=== PATIENT | female | born 1955 | race American Indian/Alaskan Native ===

== ENCOUNTER 2016-11-21 11:33 | Emergency (ER) | payer MEDICAID, OTHER ==
[~2016-11-21] VITALS: Ht 157.5 cm; Wt 94.0 kg
[~2016-11-21 11:33] MED LIST: AMLO10 PO; AUGM500T7 PO; GLUCOMTESTSTRIPS XX; GLUCTAB PO; IBUP600T26 PO; LEVEMIR SQ; LISI10 PO; LORTA5 PO; NOVOLOGP2 SQ; NYSTT TOPICAL; OXYC1SOL5 PO; RIVA15 PO; Z.0.INSULINSYR XX; Z.0.LANCETS XX
[2016-11-21 11:37] VITALS: BP 165/73; PULSE 73; RESP 24; TEMP 97.8; O2SAT 97
--- NOTE | 2016-11-21 12:01 | PD ---
HPI Chief Complaint: Abdominal Pain Time Seen by Provider: 12:01 Travel History International Travel<30 days: No Contact w/Intl Traveler<30days: No Traveled to known affect area: No History of Present Illness HPI 61-year-old female presents to emergency Department with sudden onset nausea, vomiting 1, and chills this morning. Patient has a significant history of uterine cancer followed by Dr. Colon. Patient last PET scan was in January 2016. Patient is currently off all chemotherapy and recently stopped her alto for previous DVT. Patient has a history of type 2 diabetes which is currently diet controlled after losing weight with her cancer treatment. Patient states she was feeling fine when she woke up this morning but then went for a walk but upon arriving back at her home she had sudden onset nausea, acute vomiting 1, and chills and diaphoresis. Patient states currently she has no pain and feels better. She has no diarrhea. She has no headache, fever , cough, shortness of breath, or flank pain. Patient does state she has not been drinking enough water and last week, and is worried about possible UTI. She has no known drug allergies. PFSH Past Medical History Heart Rhythm Problems: No Cancer: Yes (ENDOMETRIAL CANCER / MALIGNANT NEOPLASM OF UTERUS) Cardiovascular Problems: No High Cholesterol: No Chemotherapy: Yes (hx of uterine ca) Chest Pain: No Congestive Heart Failure: No Diabetes: Yes (borderline) Endocrine: No Genitourinary: Yes (DYSMENORRHEA, PELVIC AND PERINEAL PAIN) Hepatitis: No Hiatal Hernia: No Immune Disorder: No Implanted Vascular Access Dvce: Yes (PORT RIGHT CHEST) Musculoskeletal: Yes (ARTHRITIS) Neurologic: Yes (SUSPECTED STROKE) Psychiatric: Yes (ANXIETY) Reproductive: No Respiratory: No Immunizations Current: Yes Thyroid Disease: No ?: Not Tubal Ligation: Yes (1983) Past Surgical History Abdominal Surgery: No AICD: No Body Medical Devices: PORT RIGHT CHEST Cardiac Surgery: No Ear Surgery: No Endocrine Surgery: No Eye Surgery: No Genitourinary Surgery: No Gynecologic Surgery: Yes (D&c, HYSTEROSCOPY, ABLATIOIN IN 2014, TUBAL LIGATION IN 1983) Hysterectomy: Yes Joint Replacement: No Oral Surgery: No Pacemaker: No Thoracic Surgery: No Other Surgery: Yes Social History Alcohol Use: No Tobacco Use: No Substance Use: No Allergies-Medications (Allergen,Severity, Reaction): Coded Allergies: No Known Allergies (Verified , 11/21/16) Reported Meds & Prescriptions Reported Meds & Active Scripts Active [place] 5-325 mg (Hydrocodone-Acetaminophen 5-325 mg) 5 mg/325 mg Tab 1 Tab PO Q4H PRN Nystop (Nystatin) 15 Applic/15 Gm Powd 1 Applic TOPICAL Q12HR 5 Days Prinivil 10 mg (Lisinopril) 10 Mg Tab 10 Mg PO DAILY 30 Days Novolog (Insulin Aspart) 100 Units/ML Inj 4 Units SQ TIDPC 30 Days Levemir (Insulin Detemir) Inj 15 Units SQ BID 30 Days Norvasc (Amlodipine Besylate) 10 Mg Tab 10 Mg PO DAILY 30 Days Xarelto 15 Mg T15 Mg 15 Mg Tab 15 Mg PO BID 21 Days Oxycodone/Acetaminophen 5-325 mg/5Ml (Oxycodone W/ Acetaminophen) 5 mg/325 mg Tab 1 Tab PO Q4H PRN Reported Ibuprofen 600 Mg Tab 600 Mg PO Q8H PRN Glucophage XR 24 HR (Metformin HCl) 500 Mg Tab 500 Mg PO DAILY Review of Systems Except as stated in HPI: all other systems reviewed are Neg General / Constitutional: Positive: Chills, No: Fever Eyes: No: Visual changes HENT: No: Headaches Cardiovascular: No: Chest Pain or Discomfort Respiratory: No: Shortness of Breath Gastrointestinal: Positive: Nausea, Vomiting (see history of present illness.) , Abdominal Pain (see history present illness.) Genitourinary: No: Dysuria Musculoskeletal: No: Pain Skin: No Rash Neurologic: No: Weakness Psychiatric: No: Depression Endocrine: No: Polydipsia Hematologic/Lymphatic: No: Easy Bruising Physical Exam Narrative GENERAL: Patient appears in no acute distress. SKIN: Warm and dry. Mild pallor. No diaphoresis. HEAD: Atraumatic. Normocephalic. EYES: Pupils equal and round. No scleral icterus. No injection or drainage. ENT: No nasal bleeding or discharge. Mucous membranes pink and moist. Pharynx is clear. Airway is patent. NECK: Trachea midline. No JVD. Neck is supple and nontender. CARDIOVASCULAR: Regular rate and rhythm. No murmurs gallops or rubs. RESPIRATORY: No accessory muscle use. Clear to auscultation. Breath sounds equal bilaterally. GASTROINTESTINAL: Abdomen soft, non-tender, nondistended. Normal bowel sounds in all quadrants. No CVA tenderness at this time. Hepatic and splenic margins not palpable. MUSCULOSKELETAL: Extremities without clubbing, cyanosis, or edema. No obvious deformities. NEUROLOGICAL: Awake and alert. No obvious cranial nerve deficits. Motor grossly within normal limits. Five out of 5 muscle strength in the arms and legs. Normal speech. PSYCHIATRIC: Appropriate mood and affect; insight and judgment normal. Data Data Last Documented VS Vital Signs Date Time Temp Pulse Resp B/P Pulse Ox O2 Delivery O2 Flow Rate FiO2 11/21/16 12:23 96 Room Air 11/21/16 11:37 97.8 73 24 165/73 Orders Complete Blood Count With Diff (11/21/16 12:02) Comprehensive Metabolic Panel (11/21/16 12:02) Lipase (11/21/16 12:02) Lactic Acid (11/21/16 12:02) Prothrombin Time / Inr (Pt) (11/21/16 12:02) Act Partial Throm Time (Ptt) (11/21/16 12:02) Urinalysis - C+S If Indicated (11/21/16 12:02) Iv Access Insert/Monitor (11/21/16 12:02) Ecg Monitoring (11/21/16 12:02) Oximetry (11/21/16 12:02) NPO (11/21/16 12:02) Ondansetron Inj (Zofran Inj) (11/21/16 12:15) Sodium Chlor 0.9% 1000 Ml Inj (Ns 1000 M (11/21/16 12:02) Sodium Chloride 0.9% Flush (Ns Flush) (11/21/16 12:15) Electrocardiogram (11/21/16 12:02) Influenzae A/B Antigen (11/21/16 12:02) Heparin Central Flush (Heparin Central F (11/21/16 12:30) Sodium Chloride 0.9% Flush (Ns Flush) (11/21/16 12:30) Heparin Central Flush (Heparin Central F (11/21/16 12:30) Urine Culture (11/21/16 12:35) Ceftriaxone Inj (Rocephin Inj) (11/21/16 13:30) Labs Laboratory Tests Test 11/21/16 11/21/16 12:20 12:35 White Blood Count 6.3 TH/MM3 Red Blood Count 3.44 MIL/MM3 Hemoglobin 11.3 GM/DL Hematocrit 32.3 % Mean Corpuscular Volume 93.9 FL Mean Corpuscular Hemoglobin 32.8 PG Mean Corpuscular Hemoglobin 35.0 % Concent Red Cell Distribution Width 12.3 % Platelet Count 148 TH/MM3 Mean Platelet Volume 8.0 FL Neutrophils (%) (Auto) 86.7 % Lymphocytes (%) (Auto) 6.8 % Monocytes (%) (Auto) 5.1 % Eosinophils (%) (Auto) 1.3 % Basophils (%) (Auto) 0.1 % Neutrophils # (Auto) 5.5 TH/MM3 Lymphocytes # (Auto) 0.4 TH/MM3 Monocytes # (Auto) 0.3 TH/MM3 Eosinophils # (Auto) 0.1 TH/MM3 Basophils # (Auto) 0.0 TH/MM3 CBC Comment DIFF FINAL Differential Comment Prothrombin Time 10.6 SEC Prothromb Time International 1.0 RATIO Ratio Activated Partial 32.6 SEC Thromboplast Time Sodium Level 137 MEQ/L Potassium Level 3.8 MEQ/L Chloride Level 101 MEQ/L Carbon Dioxide Level 26.9 MEQ/L Anion Gap 9 MEQ/L Blood Urea Nitrogen 26 MG/DL Creatinine 0.90 MG/DL Estimat Glomerular Filtration 64 ML/MIN Rate Random Glucose 273 MG/DL Lactic Acid Level 1.8 mmol/L Calcium Level 8.7 MG/DL Total Bilirubin 0.3 MG/DL Aspartate Amino Transf 15 U/L (AST/SGOT) Alanine Aminotransferase 22 U/L (ALT/SGPT) Alkaline Phosphatase 68 U/L Total Protein 6.8 GM/DL Albumin 3.6 GM/DL Lipase 111 U/L Urine Color YELLOW Urine Turbidity CLEAR Urine pH 5.0 Urine Specific [place] 1.022 Urine Protein TRACE mg/dL Urine Glucose (UA) 1000 mg/dL Urine Ketones NEG mg/dL Urine Occult Blood NEG Urine Nitrite NEG Urine Bilirubin NEG Urine Urobilinogen LESS THAN 2.0 MG/DL Urine Leukocyte Esterase MOD Urine RBC 5 /hpf Urine WBC 16 /hpf Urine WBC Clumps RARE Urine Squamous Epithelial 1 /hpf Cells Urine Uric Acid Crystals RARE /hpf Urine Bacteria OCC /hpf Urine Hyaline Casts 1 /lpf Urine Mucus FEW /lpf Microscopic Urinalysis Comment CULTURE INDICATED MDM Medical Decision Making Medical Screen Exam Complete: Yes Emergency Medical Condition: Yes Differential Diagnosis Acute nausea and vomiting. UTI. Influenza. Uterine cancer patient. Dehydration. Hyperglycemia. Narrative Course Patient is medically stable at time of exam. Labs ordered including CBC, CMP, lipase, PT PTT and INR, urinalysis, and rapid influenza. IV access is obtained and the patient is given thousand and a normal saline bolus. Patient is given 4 mg Zofran IV. EKG is performed. EKG shows normal sinus rhythm without significant changes. This is reviewed with Dr. Isaac. CBC, CMP, lipase, PT PTT and INR all within normal limits. Rapid influenza test is negative. Urinalysis indicates urinary tract infection. Culture is pending. Patient is given 1 g Rocephin IV. Patient will be continued on Keflex 500 mg twice a day 7 days. Patient is also given Zofran 4 mg one every 6 hours when necessary nausea. Patient is to rest and push fluids and follow with her primary care physician. I informed the patient that her glucose was elevated to 278, and she should follow with her primary regarding these numbers. Patient is felt stable to be discharged home. Diagnosis Primary Impression: UTI (urinary tract infection) Qualified Code: N30.00 - Acute cystitis without hematuria Additional Impression: NAUSEA WITH VOMITING, UNSPECIFIED Referrals: Primary Care Physician 1 week Patient Instructions: General Instructions Additional Instructions: CBC, CMP, lipase, PT PTT and INR all within normal limits. Rapid influenza test is negative. Urinalysis indicates urinary tract infection. Culture is pending. Patient is given 1 g Rocephin IV. Patient will be continued on Keflex 500 mg twice a day 7 days. Patient is also given Zofran 4 mg one every 6 hours when necessary nausea. Patient is to rest and push fluids and follow with her primary care physician. I informed the patient that her glucose was elevated to 278, and she should follow with her primary regarding these numbers. Patient is felt stable to be discharged home. Med/Other Pt SpecificInfo: Prescription(s) given Disposition: DISCHARGE HOME Condition: Stable Paul Ventura Nov 21, 2016 12:01
[2016-11-21] MEDS ORDERED: SODIUM CHLOR 0.9% 1000 ML INJ 1,000 ML IV SCH (12:02)
[2016-11-21] MEDS ORDERED: ONDANSETRON HCL 4 MG/2 ML VIAL IVP ONE (12:15)
[2016-11-21] MEDS ORDERED: SODIUM CHLORIDE 0.9% FLUSH 5 ML FLUSH IVF PRN ×2 (12:15→12:30)
--- NOTE | 2016-11-21 12:16 | PD ---
Data Data Last Documented VS Vital Signs Date Time Temp Pulse Resp B/P Pulse Ox O2 Delivery O2 Flow Rate FiO2 11/21/16 12:23 96 Room Air 11/21/16 11:37 97.8 73 24 165/73 Orders Complete Blood Count With Diff (11/21/16 12:02) Comprehensive Metabolic Panel (11/21/16 12:02) Lipase (11/21/16 12:02) Lactic Acid (11/21/16 12:02) Prothrombin Time / Inr (Pt) (11/21/16 12:02) Act Partial Throm Time (Ptt) (11/21/16 12:02) Urinalysis - C+S If Indicated (11/21/16 12:02) Iv Access Insert/Monitor (11/21/16 12:02) Ecg Monitoring (11/21/16 12:02) Oximetry (11/21/16 12:02) NPO (11/21/16 12:02) Ondansetron Inj (Zofran Inj) (11/21/16 12:15) Sodium Chlor 0.9% 1000 Ml Inj (Ns 1000 M (11/21/16 12:02) Sodium Chloride 0.9% Flush (Ns Flush) (11/21/16 12:15) Electrocardiogram (11/21/16 12:02) Influenzae A/B Antigen (11/21/16 12:02) Heparin Central Flush (Heparin Central F (11/21/16 12:30) Sodium Chloride 0.9% Flush (Ns Flush) (11/21/16 12:30) Heparin Central Flush (Heparin Central F (11/21/16 12:30) Urine Culture (11/21/16 12:35) Labs Laboratory Tests Test 11/21/16 11/21/16 12:20 12:35 White Blood Count 6.3 TH/MM3 Red Blood Count 3.44 MIL/MM3 Hemoglobin 11.3 GM/DL Hematocrit 32.3 % Mean Corpuscular Volume 93.9 FL Mean Corpuscular Hemoglobin 32.8 PG Mean Corpuscular Hemoglobin 35.0 % Concent Red Cell Distribution Width 12.3 % Platelet Count 148 TH/MM3 Mean Platelet Volume 8.0 FL Neutrophils (%) (Auto) 86.7 % Lymphocytes (%) (Auto) 6.8 % Monocytes (%) (Auto) 5.1 % Eosinophils (%) (Auto) 1.3 % Basophils (%) (Auto) 0.1 % Neutrophils # (Auto) 5.5 TH/MM3 Lymphocytes # (Auto) 0.4 TH/MM3 Monocytes # (Auto) 0.3 TH/MM3 Eosinophils # (Auto) 0.1 TH/MM3 Basophils # (Auto) 0.0 TH/MM3 CBC Comment DIFF FINAL Differential Comment Prothrombin Time 10.6 SEC Prothromb Time International 1.0 RATIO Ratio Activated Partial 32.6 SEC Thromboplast Time Sodium Level 137 MEQ/L Potassium Level 3.8 MEQ/L Chloride Level 101 MEQ/L Carbon Dioxide Level 26.9 MEQ/L Anion Gap 9 MEQ/L Blood Urea Nitrogen 26 MG/DL Creatinine 0.90 MG/DL Estimat Glomerular Filtration 64 ML/MIN Rate Random Glucose 273 MG/DL Lactic Acid Level 1.8 mmol/L Calcium Level 8.7 MG/DL Total Bilirubin 0.3 MG/DL Aspartate Amino Transf 15 U/L (AST/SGOT) Alanine Aminotransferase 22 U/L (ALT/SGPT) Alkaline Phosphatase 68 U/L Total Protein 6.8 GM/DL Albumin 3.6 GM/DL Lipase 111 U/L Urine Color YELLOW Urine Turbidity CLEAR Urine pH 5.0 Urine Specific [place] 1.022 Urine Protein TRACE mg/dL Urine Glucose (UA) 1000 mg/dL Urine Ketones NEG mg/dL Urine Occult Blood NEG Urine Nitrite NEG Urine Bilirubin NEG Urine Urobilinogen LESS THAN 2.0 MG/DL Urine Leukocyte Esterase MOD Urine RBC 5 /hpf Urine WBC 16 /hpf Urine WBC Clumps RARE Urine Squamous Epithelial 1 /hpf Cells Urine Uric Acid Crystals RARE /hpf Urine Bacteria OCC /hpf Urine Hyaline Casts 1 /lpf Urine Mucus FEW /lpf Microscopic Urinalysis Comment CULTURE INDICATED MDM Supervised Visit with SHARON: Yes Narrative Course I, Dr. Resendiz, have reviewed the advance practice practioner's documentation and am in agreement, met with the patient face to face, made the diagnosis, and the medical decision making was done by me. *My assessment and Findings: 61-year-old female with history of uterine cancer , DVT here with complaint of sudden onset of nausea, vomiting times one and chills this morning. No documented fever. No abdominal pain. She does note some dysuria and urgency and is concern for possible UTI. abdominal examination benign. breath sounds are clear. No CVA tenderness.differential includes UTI, viral syndrome, influenza. It has been several months since her last chemotherapy and is not immunosuppressed. UTI positive, treat with rocephin/ keflex and d/c home. Cathy Resendiz MD Nov 21, 2016 12:16
[2016-11-21 12:23] VITALS: O2SAT 96
[2016-11-21 12:33] LABS: AUTOMATED NEUTROPHIL # 5.5 TH/MM3 (1.8-7.7); BASOPHIL % 0.1 % (0.0-2.0); EOSINOPHIL # 0.1 TH/MM3 (0-0.4); EOSINOPHIL % 1.3 % (0.0-4.0); HEMATOCRIT 32.3 % (35.0-46.0); HEMO FLAGS DIFF FINAL; LYMPH % 6.8 % (9.0-44.0); LYMPHOCYTE # 0.4 TH/MM3 (1.0-4.8); MEAN CELL VOLUME 93.9 FL (80.0-100.0); MEAN CORPUSCULAR HEMOGLOBIN 32.8 PG (27.0-34.0); MONO % 5.1 % (0.0-8.0); NEUT % 86.7 % (16.0-70.0); PLATELET COUNT 148 TH/MM3 (150-450); RED BLOOD COUNT 3.44 MIL/MM3 (4.00-5.30); RED CELL DISTRIBUTION WIDTH 12.3 % (11.6-17.2); WHITE BLOOD COUNT 6.3 TH/MM3 (4.0-11.0)
[2016-11-21 12:41] LABS: APTT (PATIENT) 32.6 SEC (24.3-30.1); PROTHROMBIN TIME - PATIENT 10.6 SEC (9.8-11.6)
[2016-11-21 12:50] LABS: ANION GAP 9 MEQ/L (5-15); AST (GOT) 15 U/L (15-37); BICARBONATE 26.9 MEQ/L (21.0-32.0); BLOOD UREA NITROGEN 26 MG/DL (7-18); CHLORIDE 101 MEQ/L (98-107); GLOMERULAR FILTRATION RATE 64 ML/MIN (>89); POTASSIUM 3.8 MEQ/L (3.5-5.1); SODIUM (NA) 137 MEQ/L (136-145)
[2016-11-21 12:53] LABS: ALKALINE PHOSPHATASE 68 U/L (45-117); ALT (GPT) 22 U/L (10-53); TOTAL BILIRUBIN ADULT 0.3 MG/DL (0.2-1.0)
[2016-11-21 13:00] VITALS: BP 167/72; PULSE 77; RESP 20; O2SAT 97
[2016-11-21 13:06] LABS: BACTERIA, URINE OCC /hpf; BLOOD, URINE NEG (NEG); COMMENT (UR) CULTURE INDICATED; CULTURE IF INDICATED CULTURE INDICATED; GLUCOSE,URINE 1000 mg/dL (NEG); HYALINE CAST, URINE 1 /lpf (RARE); KETONE, URINE NEG (NEG); MUCUS URINE FEW /lpf (OCC); NITRITE,URINE NEG (NEG); SQUAMOUS EPITHELIAL CELL URINE 1 /hpf (0-5); URIC ACID CRYSTALS, URINE RARE /hpf; URINE COLOR YELLOW (YELLW/STRAW)
[2016-11-21] MEDS ORDERED: CEPH-460 PO (13:20)
[2016-11-21] MEDS ORDERED: ZOFR4TAB PO (13:20)
[2016-11-21] MEDS ORDERED: cefTRIAXone INJ 1,000 MG in SODIUM CHLORIDE 0.9% INJ 100 ML IV ONE (13:30)
[2016-11-21] MEDS ORDERED: LEVEMIR SQ (13:37)
[2016-11-21] MEDS ORDERED: PERC5TAB12 PO (13:37)
[2016-11-21] MEDS ORDERED: AMLO10TA2 PO (13:37)
[2016-11-21] MEDS ORDERED: NOVONP2 SQ (13:43)
[2016-11-21 15:21] VITALS: BP 167/71
--- NOTE | 2016-11-22 14:10 | EKG ---
Date Performed: 11/21/2016 Time Performed: 12:21:18 PTAGE: 61 years EKG: Sinus rhythm NORMAL ECG NO PREVIOUS TRACING DOCTOR: Joe Garber Interpretating Date/Time 11/22/2016 14:09:50
== END 2016-11-21 15:23 | disposition home or self-care (01) ==
LOC: NEPE 11:33
DX: N39.0 Urinary tract infection, site not specified (principal); B96.20 Unspecified Escherichia coli [E. coli] as the cause of diseases classified elsewhere; Z85.42 Personal history of malignant neoplasm of other parts of uterus
CPT/HCPCS: 80053; 81001; 83605; 83690; 85025; 85610; 85730; 87077; 87086; 87186; 87804; 93005; 96361; 96365; 96375; 99284; J0696; J1642; J2405; J7030